=== PATIENT | female | born 1960 | race Caucasian/White ===

== ENCOUNTER → 2019-10-30 09:57 | Outpatient (CLI) | payer OTHER, SELFPAY ==
[2019-10-30 09:44] VITALS: BMI 24.7
--- NOTE | 2019-10-30 09:58 | RAD_ITS ---
STUDY: X-RAY - RIGHT ELBOW REASON FOR EXAM: Female, 59 years old. elbow pain TECHNIQUE: 3 view(s) of the elbow. COMPARISON: None. FINDINGS: Findings suggestive of a healed radial neck fracture. Normal radiocapitellar and ulnotrochlear articulations. The soft tissue structures are unremarkable. RAD/Elbow min 3 Views IMPRESSION: Findings suggestive of a healed radial neck fracture. Electronically Signed: Lazaro Quiles, at 11:01 EST , Service support ,
== END ==
PROVIDERS: Family Provider Family Medicine; PCP Family Medicine; Referring Provider Physician Assistant Surgical; Visit Provider Physician Assistant Surgical
DX: S50.01XA Contusion of right elbow, initial encounter (principal)
CPT/HCPCS: 73080

== ENCOUNTER → 2020-01-13 | Outpatient (CLI) | payer OTHER, SELFPAY ==
[2019-12-28 12:42] VITALS: BMI 24.7
--- NOTE | 2020-01-13 08:27 | MRI_ITS ---
STUDY: MRI RIGHT ELBOW REASON FOR EXAM: Female, 59 years old. right elbow injury, fracture radial neck, contusion, n/t down arm, s/p fall 11/2019 TECHNIQUE: Standardized fat and water weighted pulse sequences were obtained in all 3 orthogonal planes. COMPARISON: None. FINDINGS: Mild degenerative cystic changes are noted in the radiocapitellar joint. There is thickening and mild increased signal in the proximal aspect of the radial collateral ligament possibly representing sprain or partial tear. There is tearing of the proximal insertion of the common extensor tendon. There is mild osteophyte formation in the ulnar trochlear joint. Normal ulnar collateral ligamentous complex. Normal common flexor tendon. The cubital tunnel is normal, with a normal ulnar nerve. Normal biceps tendon and distal insertion. Normal lacertus fibrosis. Normal brachialis musculotendinous insertion. Normal triceps tendon and teno-osseous insertion. Normal olecranon process. No abnormal bone marrow edema is noted in the osseous structures. The visualized muscles of the distal arm and proximal forearm are normal. The soft tissue structures are unremarkable. MRI/Upper Ext Joint Only(Routine) IMPRESSION: Tearing of the proximal insertion of the common extensor tendons without significant surrounding fluid collection indicating a subacute to chronic timeframe. Sprain or partial tearing of the radial collateral ligament. Degenerative changes. Electronically Signed: Kurt Thornton, at 12:38 EDT Tel , Service support ,
== END | disposition home or self-care (01) ==
LOC: MRI 08:26
PROVIDERS: PCP Family Medicine; Referring Provider Orthopaedic Surgery; Visit Provider Orthopaedic Surgery
DX: S52.13 Fracture of neck of radius (principal); S50.01XA Contusion of right elbow, initial encounter
CPT/HCPCS: 73221

== ENCOUNTER → 2020-12-21 08:32 | Outpatient (CLI) | payer MEDICAID, SELFPAY ==
--- NOTE | 2020-12-21 08:33 | MRI_ITS ---
STUDY: MRI LUMBAR SPINE WITHOUT CONTRAST REASON FOR EXAM: Female, 60 years old. lumbar radiculitis, severe pain., herniation of lumbar intervertebral disc with radiculopathy TECHNIQUE: Standardized fat and water weighted pulse sequences were obtained in the sagittal and axial planes. COMPARISON: X-ray to 521 FINDINGS: T12-L1: Moderate bilobed disc protrusion produces a moderate spinal stenosis, mild right neural foraminal stenosis and no left neural foraminal stenosis. Normal lumbar lordosis. Moderate dextroscoliosis centered at L2/L3. Normal conus medullaris that terminates at the L1/L2. L1-2: Mild bilateral facet hypertrophy and ligament flavum hypertrophy. Mild bilobed disc protrusion produces mild spinal stenosis and mild bilateral neural foraminal stenosis. L2-3: Mild bilateral facet hypertrophy and ligament flavum hypertrophy. Mild bilobed disc protrusion produces mild spinal stenosis and mild left neural foraminal stenosis. L3-4: Moderate bilateral facet hypertrophy and mild ligament flavum hypertrophy. Mild broad disc protrusion produces mild spinal stenosis and moderate left neural foraminal stenosis. L4-5: Mild bilateral facet hypertrophy and ligament flavum hypertrophy. Mild broad disc protrusion produces mild spinal stenosis, moderate right lateral recess stenosis with abutment of the right L5 nerve root, mild left lateral recess stenosis and moderate right neural foraminal stenosis with abutment of the right L4 nerve root laterally. L5-S1: Mild bilateral facet hypertrophy. Moderate broad disc protrusion produces moderate spinal stenosis with moderate bilateral recess stenosis with abutment of the S1 nerve roots bilaterally and moderate bilateral neural foraminal stenosis with abutment of the L5 nerve roots bilaterally. Normal visualized sacral ala. Normal visualized paraspinous soft tissue structures. MRI/Spine Lumbar (Routine) IMPRESSION: Moderate dextroscoliosis and degenerative disc disease as described above. Electronically Signed: Mani Todd MD at 10:08 EST Tel , Service support ,
== END ==
PROVIDERS: PCP Family Medicine; Referring Provider Orthopaedic Surgery; Visit Provider Orthopaedic Surgery
DX: M51.16 Intervertebral disc disorders with radiculopathy, lumbar region (principal)
CPT/HCPCS: 72148